=== PATIENT | female | born 1975 | race Caucasian/White ===

== ENCOUNTER 2021-01-18 18:52 | Emergency (ER) | payer BC ==
[2021-01-18] MEDS ORDERED: Ondansetron 4 MG/2 ML SDV IVPUSH ONE ×2 (18:56→20:53)
[2021-01-18] MEDS ORDERED: Morphine 2 MG/ML SYRINGE IVPUSH ONE ×2 (18:56→20:04)
[2021-01-18] MEDS ORDERED: Sodium Chloride 0.9% 1,000 ML IV SCH ×2 (19:00→21:00)
[2021-01-18] MEDS: Sodium Chloride 0.9% 10 ML Syringe FLUSH PRN ×3 (19:29→22:55)
[2021-01-18 19:47] LABS: CHLORIDE,CL 102 mmol/L (98-107); SODIUM,NA 140 mmol/L (136-145)
[2021-01-18] MEDS ORDERED: HYDROmorphone 1 MG/ML Syringe IVPUSH ONE ×2 (20:53→22:55)
--- NOTE | 2021-01-18 21:15 | EDM.PDOC ---
ED HPI GENERAL MEDICAL PROBLEM - General Chief Complaint: Abdominal Pain Stated Complaint: abdominal pain Time Seen by Provider: 01/18/21 19:00 Source of Information: Reports: Patient History Limitations: Reports: No Limitations - History of Present Illness INITIAL COMMENTS - FREE TEXT/NARRATIVE: Pt with LLQ pain beginning this AM and getting worse No fever Some N/V and several diarrhea stools Has hx/o kidney stones in past that required stenting and lithotripsy No traumas No travel hx Onset: Today, Sudden Duration: Getting Worse Location: Reports: Abdomen Quality: Reports: Stabbing, Throbbing Severity: Severe - Related Data Allergies Allergy/AdvReac Type Severity Reaction Status Date / Time metformin Allergy Nausea and Verified 01/18/21 20:38 Vomiting Home Meds: Home Meds Calcium Carbonate/Vitamin D3 [Calcium 600 + Vit D 400] 1 tab PO BEDTIME 08/21/14 [History] Levothyroxine 200 mcg PO BEDTIME 08/21/14 [History] Multivitamin [Daily Multiple Vitamin] 1 tab PO BEDTIME 08/21/14 [History] Naproxen Sodium [Aleve] 220 mg PO Q6H PRN 08/21/14 [History] Sertraline HCl 150 mg PO BEDTIME 08/21/14 [History] buPROPion HCl [Wellbutrin Xl] 150 mg PO BEDTIME 08/21/14 [History] buPROPion HCl [Wellbutrin Xl] 300 mg PO BEDTIME 08/21/14 [History] Levothyroxine Sodium [Synthroid] 25 mcg PO MOWEFR@2000 01/18/21 [History] Rosuvastatin Calcium 10 mg PO BEDTIME 01/18/21 [History] Semaglutide [Ozempic] 1 injection SUBCUT WEEKLY 01/18/21 [History] lisinopriL [Lisinopril] 10 mg PO BEDTIME 01/18/21 [History] Past Medical History HEENT History: Reports: None. Denies: Allergic Rhinitis, Cataract, Glaucoma, Hard of Hearing, Impaired Vision, Macular Degeneration, Retinal Detachment, Sinusitis Cardiovascular History: Reports: High Cholesterol, Other (See Below) Other Cardiovascular History: Hyperlipidemia, which is diet controlled, with with history of fatty liver by CT scan Respiratory History: Reports: None, COPD. Denies: Intubation, Previous, PE, Sleep Apnea Gastrointestinal History: Reports: Other (See Below) Other Gastrointestinal History: Fatty liver as above Genitourinary History: Reports: Renal Calculus, UTI, Recurrent Other Genitourinary History: Left-sided urolithiasis requiring procedures as below in August 2014 Other MEDICAL AIDE History: IUD Musculoskeletal History: Reports: Arthritis, Fracture, Osteoarthritis, Osteoporosis, Other (See Below) Other Musculoskeletal History: Right proximal tibial and fibular fracture in 2013 requiring surgeries as below Neurological History: Reports: Concussion, Head Trauma, Other (See Below) Other Neuro History: Head concussion in the , muscular dystrophy initially diagnosed at age 19 Psychiatric History: Reports: Anxiety, Depression. Denies: Abuse, Victim of, ADHD, Addiction, Psych Hospitalization(s), PTSD, Suicide Attempt, Suicidal Ideation Endocrine/Metabolic History: Reports: Hypothyroidism, Other (See Below) Other Endocrine/Metabolic History: Borderline hyperglycemia currently treated with diet Hematologic History: Reports: None. Denies: Anemia, B12 Deficiency, Blood Transfusion(s) Immunologic History: Reports: None. Denies: AIDS, HIV, SLE Oncologic (Cancer) History: Reports: None Dermatologic History: Reports: None. Denies: Eczema, Psoriasis - Infectious Disease History Infectious Disease History: Reports: Chicken Pox - Past Surgical History HEENT Surgical History: Reports: Adenoidectomy, Oral Surgery, Tonsillectomy Female Surgical History: Reports: None, Kidney stone extraction, Lithotripsy/ESWL, Ureteral Stent, Other (See Below) - Past Imaging History Past Imaging History: Reports: CAT Scan, DEXA Scan, Mammogram Social & Family History - Caffeine Use Caffeine Use: Reports: Coffee (2 cups per day), Tea (3 cups per day). Denies: Energy Drinks, Soda - Living Situation & Occupation Living situation: Reports: , with Family Occupation: Disabled ED ROS GENERAL - Review of Systems Review Of Systems: See Below Constitutional: Reports: No Symptoms HEENT: Reports: No Symptoms Respiratory: Reports: No Symptoms Cardiovascular: Reports: No Symptoms GI/Abdominal: Reports: Abdominal Pain, Diarrhea, Nausea, Vomiting : Reports: Flank Pain Musculoskeletal: Reports: No Symptoms Skin: Reports: No Symptoms Neurological: Reports: No Symptoms ED EXAM, GI/ABD - Physical Exam Exam: See Below Exam Limited By: No Limitations General Appearance: Alert, WD/WN, Severe Distress Throat/Mouth: Normal Oropharynx Neck: Supple Respiratory/Chest: Lungs Clear Cardiovascular: Regular Rate, Rhythm GI/Abdominal Exam: Soft, Tender, Other (Tender LLQ) Extremities: Normal Inspection Neurological: Alert, Oriented Psychiatric: Normal Affect, Normal Mood Course - Orders/Labs/Meds Orders: Active Orders 24 hr Category Date Time Status Abdomen Pelvis wo Cont [CT] Stat Exams 01/18/21 20:09 Ordered Sodium Chloride 0.9% [Normal Saline] 1,000 ml Med 01/18/21 19:00 Active IV ASDIRECTED Sodium Chloride 0.9% [Normal Saline] 1,000 ml Med 01/18/21 21:00 Active IV ASDIRECTED Sodium Chloride 0.9% [Saline Flush] Med 01/18/21 18:57 Active 10 ml FLUSH ASDIRECTED PRN Saline Lock Insert [OM.PC] Routine Oth 01/18/21 18:57 Ordered Medication Orders Sodium Chloride (Normal Saline) 1,000 mls @ 999 mls/hr IV ASDIRECTED ISREAL Last Admin: 01/18/21 19:31 Dose: 999 mls/hr Documented by: MARY KAY Sodium Chloride (Normal Saline) 1,000 mls @ 100 mls/hr IV ASDIRECTED ISREAL Last Admin: 01/18/21 21:00 Dose: 100 mls/hr Documented by: MARY KAY Sodium Chloride (Saline Flush) 10 ml FLUSH ASDIRECTED PRN PRN Reason: Keep Vein Open Last Admin: 01/18/21 21:08 Dose: 10 ml Documented by: MARY KAY Admin: 01/18/21 19:29 Dose: 10 ml Documented by: MARY KAY Labs: Laboratory Tests 01/18/21 01/18/21 01/18/21 Range/Units 19:25 19:25 19:25 WBC 10.0 (4.0-10.2) K/uL RBC 4.98 (3.77-5.09) M/uL Hgb 14.5 (11.7-15.5) g/dL Hct 43.8 (34.0-46.0) % MCV 88.0 (84.0-98.0) fL MCH 29.1 (28.2-33.3) pg MCHC 33.1 (31.7-36.0) g/dL RDW 14.7 H (11.2-14.1) % Plt Count 161 D (150-350) K/uL Neut % (Auto) 81.4 H (45.0-80.0) % Lymph % (Auto) 10.5 (10.0-50.0) % [place] % (Auto) 6.8 (2.0-14.0) % Eos % (Auto) 1.0 (0.0-5.0) % Baso % (Auto) 0.3 (0.0-2.0) % Neut # (Auto) 8.17 H (1.40-7.00) K/uL Lymph # (Auto) 1.05 (0.50-3.50) K/uL [place] # (Auto) 0.68 (0.00-1.00) K/uL Eos # (Auto) 0.10 (0.00-0.50) K/uL Baso # (Auto) 0.03 (0.00-0.20) K/uL Sodium 140 (136-145) mmol/L Potassium 3.9 (3.5-5.1) mmol/L Chloride 102 (98-107) mmol/L Carbon Dioxide 24.5 (21.0-32.0) mmol/L BUN 7 (7-18) mg/dL Creatinine 0.25 L (0.51-1.17) mg/dL Est Cr Clr Drug Dosing TNP Estimated GFR (MDRD) > 60 mL/min Glucose 133 H (70-99) mg/dL Calcium 8.7 (8.5-10.1) mg/dL Total Bilirubin 0.3 (0.2-1.0) mg/dL AST 35 (15-37) U/L ALT 54 (12-78) U/L Alkaline Phosphatase 80 (46-116) IU/L Total Protein 7.6 (6.4-8.2) g/dL Albumin 3.8 (3.4-5.0) g/dL Lipase 83 (73-393) U/L HCG, Qual Negative (NEGATIVE) Specimen Type Urine Color Urine Appearance Urine pH (5.0-9.0) Ur Specific [place] (1.005-1.030) Urine Protein (NEGATIVE) mg/dL Urine Glucose (UA) (NEGATIVE) mg/dL Urine Ketones (NEGATIVE) mg/dL Urine Occult Blood (NEGATIVE) Urine Nitrite (NEGATIVE) Urine Bilirubin (NEGATIVE) Urine Urobilinogen (0.2-1.0) E.U./dL Ur Leukocyte Esterase (NEGATIVE) Urine RBC /HPF Urine WBC /HPF Ur Epithelial Cells /LPF Urine Bacteria (NONE TO FEW) /HPF Urine Mucus (NEGATIVE) /LPF 01/18/21 Range/Units 19:30 WBC (4.0-10.2) K/uL RBC (3.77-5.09) M/uL Hgb (11.7-15.5) g/dL Hct (34.0-46.0) % MCV (84.0-98.0) fL MCH (28.2-33.3) pg MCHC (31.7-36.0) g/dL RDW (11.2-14.1) % Plt Count (150-350) K/uL Neut % (Auto) (45.0-80.0) % Lymph % (Auto) (10.0-50.0) % [place] % (Auto) (2.0-14.0) % Eos % (Auto) (0.0-5.0) % Baso % (Auto) (0.0-2.0) % Neut # (Auto) (1.40-7.00) K/uL Lymph # (Auto) (0.50-3.50) K/uL [place] # (Auto) (0.00-1.00) K/uL Eos # (Auto) (0.00-0.50) K/uL Baso # (Auto) (0.00-0.20) K/uL Sodium (136-145) mmol/L Potassium (3.5-5.1) mmol/L Chloride (98-107) mmol/L Carbon Dioxide (21.0-32.0) mmol/L BUN (7-18) mg/dL Creatinine (0.51-1.17) mg/dL Est Cr Clr Drug Dosing Estimated GFR (MDRD) mL/min Glucose (70-99) mg/dL Calcium (8.5-10.1) mg/dL Total Bilirubin (0.2-1.0) mg/dL AST (15-37) U/L ALT (12-78) U/L Alkaline Phosphatase (46-116) IU/L Total Protein (6.4-8.2) g/dL Albumin (3.4-5.0) g/dL Lipase (73-393) U/L HCG, Qual (NEGATIVE) Specimen Type Urinvoid Urine Color Yellow Urine Appearance Slightly cloudy Urine pH 5.5 (5.0-9.0) Ur Specific [place] >= 1.030 (1.005-1.030) Urine Protein 100 H (NEGATIVE) mg/dL Urine Glucose (UA) Negative (NEGATIVE) mg/dL Urine Ketones Negative (NEGATIVE) mg/dL Urine Occult Blood Large H (NEGATIVE) Urine Nitrite Negative (NEGATIVE) Urine Bilirubin Negative (NEGATIVE) Urine Urobilinogen 0.2 (0.2-1.0) E.U./dL Ur Leukocyte Esterase Negative (NEGATIVE) Urine RBC 50-75 H /HPF Urine WBC 0-5 /HPF Ur Epithelial Cells Moderate H /LPF Urine Bacteria Few (NONE TO FEW) /HPF Urine Mucus Few H (NEGATIVE) /LPF Meds: Medications Generic Name Dose Route Start Last Admin Trade Name Freq PRN Reason Stop Dose Admin Sodium Chloride 1,000 mls @ 999 mls/hr 01/18/21 19:00 01/18/21 19:31 Normal Saline IV 999 mls/hr ASDIRECTED ISREAL Administration Sodium Chloride 1,000 mls @ 100 mls/hr 01/18/21 21:00 01/18/21 21:00 Normal Saline IV 100 mls/hr ASDIRECTED ISREAL Administration Sodium Chloride 10 ml 01/18/21 18:57 01/18/21 21:08 Saline Flush FLUSH 10 ml ASDIRECTED PRN Administration Keep Vein Open Discontinued Medications Generic Name Dose Route Start Last Admin Trade Name Freq PRN Reason Stop Dose Admin Hydromorphone HCl 1 mg 01/18/21 20:53 01/18/21 21:00 Dilaudid IVPUSH 01/18/21 20:54 1 mg ONETIME ONE Administration Morphine Sulfate 2 mg 01/18/21 18:56 01/18/21 19:29 Morphine IVPUSH 01/18/21 18:57 2 mg ONETIME ONE Administration Morphine Sulfate 2 mg 01/18/21 20:04 01/18/21 20:13 Morphine IVPUSH 01/18/21 20:05 2 mg ONETIME ONE Administration Ondansetron HCl 8 mg 01/18/21 18:56 01/18/21 19:29 Zofran IVPUSH 01/18/21 18:57 8 mg ONETIME ONE Administration Ondansetron HCl 8 mg 01/18/21 20:53 01/18/21 21:00 Zofran IVPUSH 01/18/21 20:54 8 mg ONETIME ONE Administration - Re-Assessments/Exams Free Text/Narrative Re-Assessment/Exam: 01/18/21 21:[address] per radiologist 7mm distal left ureteral stone Severe hydronephrosis with free fluid around left kidney Possible calyx rupture D/W Dr [facility] Will accept in transfer Pt given IV Zofran, IV Morphine and IV Dilaudid in ER Departure - Departure Time of Disposition: 21:15 Disposition: DC/Tfer to [facility] 02 Clinical Impression: Left ureteral calculus - Discharge Information *PRESCRIPTION DRUG MONITORING PROGRAM REVIEWED*: Not Applicable *COPY OF PRESCRIPTION DRUG MONITORING REPORT IN PATIENT CHARLY: Not Applicable Referrals: Lori Mcelroy, SHAKE TABLE OPERATOR [Primary Care Provider] - - My Orders Last 24 Hours: My Active Orders 01/18/21 18:57 Sodium Chloride 0.9% [Saline Flush] 10 ml FLUSH ASDIRECTED PRN Saline Lock Insert [OM.PC] Routine 01/18/21 19:00 Sodium Chloride 0.9% [Normal Saline] 1,000 ml IV ASDIRECTED 01/18/21 20:09 Abdomen Pelvis wo Cont [CT] Stat 01/18/21 21:00 Sodium Chloride 0.9% [Normal Saline] 1,000 ml IV ASDIRECTED - Assessment/Plan Last 24 Hours: My Active Orders 01/18/21 18:57 Sodium Chloride 0.9% [Saline Flush] 10 ml FLUSH ASDIRECTED PRN Saline Lock Insert [OM.PC] Routine 01/18/21 19:00 Sodium Chloride 0.9% [Normal Saline] 1,000 ml IV ASDIRECTED 01/18/21 20:09 Abdomen Pelvis wo Cont [CT] Stat 01/18/21 21:00 Sodium Chloride 0.9% [Normal Saline] 1,000 ml IV ASDIRECTED
[2021-01-19 00:41] VITALS: BP 154/88; PULSE 112
== END 2021-01-18 23:20 ==
LOC: LL.ED 18:52
DX: N13.2 Hydronephrosis with renal and ureteral calculous obstruction (principal); E78.5 Hyperlipidemia, unspecified; J44.9 Chronic obstructive pulmonary disease, unspecified; E03.9 Hypothyroidism, unspecified; Z88.8 Allergy status to other drugs, medicaments and biological substances; Z79.899 Other long term (current) drug therapy
CPT/HCPCS: 36415; 74176; 80053; 81001; 83690; 84703; 85025; 87426; 96374; 96375; 96376; 99284; 99285-25; J1170; J2270; J2405; J7030